=== PATIENT | female | born 1945 | race Caucasian/White ===

== ENCOUNTER 2017-10-20 11:44 | Observation (INO) ==
[2017-10-20] MEDS ORDERED: Aspirin 81 MG TAB.CHEW PO ONE (12:28)
--- NOTE | 2017-10-20 12:31 | Emergency Department Note ---
Disposition Clinical Impression: Weakness UTI (urinary tract infection) Qualifiers: Urinary tract infection type: acute cystitis Hematuria presence: without hematuria Qualified Code(s): N30.00 - Acute cystitis without hematuria Chest pain Qualifiers: Chest pain type: unspecified Qualified Code(s): R07.9 - Chest pain, unspecified Disposition: Admitted As Inpatient Condition: Good Weakness HPI - General Chief complaint: ED Weakness Stated complaint: Weakness/feels gonna pass out Time Seen by Provider: 10/20/17 11:55 Source: patient, family Mode of arrival: wheelchair Limitations: no limitations Nursing Notes Reviewed: Yes Vital Signs Reviewed: Yes (BP 194/84) - History of Present Illness HPI Narrative: 72-year-old female with past history previous NSTEMI, hypertension, arthritis, and osteoporosis, presents to emergency department with a 3 to four-day history of feeling lightheadedness, generalized weakness, and blurred vision. She states that at times when she is up walking around she feels like she is going to pass out. He also states that she is having some intermittent, dull centralized chest pain. The pain seems to resolve on its own after a few minutes. There is no associated diaphoresis, nausea, vomiting, or radiating pain. She reports that today she had some diarrhea. When she had her NSTEMI in April 2017 presenting symptom was syncope. Echo at that time showed EF 55% with mild diastolic dysfunction. She denies any fever, chills, focal weakness, syncope, dyspnea, abdominal pain, dysuria, or leg swelling. Pain Scale: 0 - Related Data Home Medications Medication Instructions Recorded Confirmed Alendronate Sodium [Fosamax] 70 mg PO TH 05/12/17 10/20/17 LORazepam [Ativan] 0.5 mg PO BID PRN 05/12/17 10/20/17 Previous Rx's Medication Instructions Recorded Aspirin 81 mg PO DAILY #30 tab.chew 12/25/15 Atorvastatin [Lipitor] 40 mg PO HS #30 tablet 12/25/15 Lisinopril [Zestril] 20 mg PO BID #60 tablet 12/25/15 levoFLOXacin [Levaquin] 500 mg PO DAILY #6 tablet 10/21/17 Allergies Allergy/AdvReac Type Severity Reaction Status Date / Time Sulfa (Sulfonamide Allergy Rash Verified 05/12/17 12:45 Antibiotics) meloxicam AdvReac Nausea Verified 05/12/17 12:45 tramadol AdvReac Hallucinati Verified 05/12/17 12:45 ng All systems ED: reviewed and negative except as stated. 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 history: Reports: no FACTORY PROCESS WORKERS history - Social History Smoking Status: Former smoker Smokeless Tobacco Status: No Alcohol use: Reports: rarely Drug use: Reports: none Physical Exam - General Limitations: no limitations General appearance: alert, in no apparent distress, lethargic - Head Head exam: atraumatic, normocephalic, normal inspection - Eye Eye exam: Present: normal appearance, PERRL, EOMI - ENT ENT exam: normal exam, normal oropharynx - Neck Neck exam: Present: normal inspection - Chest Chest inspection: Present: symmetric chest wall rise - Respiratory Respiratory exam: Present: normal lung sounds bilaterally. Absent: respiratory distress - Cardiovascular Cardiovascular exam: Present: regular rate, normal rhythm, +S1, +S2 - Abdominal Exam Abdominal exam: Present: soft, Non-Tender, normal bowel sounds, other (R groin TTP, no adenopathy/redness) - Extremities Exam Extremities exam: Present: normal inspection. Absent: tenderness, calf tenderness - Back Exam Back exam: Present: CVA tenderness (R). Absent: CVA tenderness (L) - Neurological Exam Neurological exam: Present: alert, oriented X3, CN II-XII intact, reflexes normal. Absent: motor sensory deficit - Psychiatric Psychiatric exam: Present: normal affect, normal mood - Skin Skin exam: Present: warm, dry, intact, normal color Course Vital Signs Temperature 98.3 F 10/20/17 11:48 Pulse Rate 86 10/20/17 11:48 Respiratory Rate 18 10/20/17 11:48 Blood Pressure 198/84 10/20/17 11:48 O2 Sat by Pulse Oximetry 99 10/20/17 11:48 Temperature 97.9 F 10/21/17 15:09 Pulse Rate 66 10/21/17 15:09 Respiratory Rate 16 10/21/17 15:09 Blood Pressure 134/64 10/21/17 15:09 O2 Sat by Pulse Oximetry 98 10/21/17 15:09 Oxygen Delivery Oxygen Delivery Room Air Weakness - MDM Narrative Medical decision making narrative: Patient received a dose of aspirin 324 upon arrival. ECG shows NSR and no signs of ischemia. Troponin negative. Her chest pain now has resolved. CBC and CMP are unremarkable. The patient has had been hypertensive here in the ED , and reports that she took one of her antihypertensive this morning. She states her blood pressure is always high. She was on both metoprolol and lisinopril, however she cannot remember which one she took this morning. She received 25mg of metoprolol here in the ED and her BP is not improved. Urinalysis is positive for nitrates, leukoesterase, white blood cells, and bacteria in the urine. Will give 1 dose of Rocephin now and the patient will be admitted for further antibiotic treatment for UTI. She lives alone and is quite symptomatic with lightheadedness and dizziness, and would be unsafe to discharge home at this time. - Lab Data Lab results reviewed: Yes I reviewed the patient's lab results. Result diagrams: 10/21/17 07:00 10/21/17 07:00 Lab Results 10/20/17 10/20/17 10/20/17 Range/Units 11:58 12:45 13:16 WBC 7.4 (4.3-11.1) K/mcL RBC 4.75 (3.82-4.97) M/mcL Hgb 13.0 (11.5-15.4) g/dL Hct 41.1 (35.3-44.9) % MCV 86.5 (83.0-100.0) fL MCH 27.4 L (28.0-33.3) pg MCHC 31.6 (31.6-35.5) g/dL RDW 13.9 (11.5-14.5) % Plt Count 242 (140-400) K/mcL MPV 10.5 (9.4-12.4) fL Immature Gran % 0.4 (0-4) % Seg Neutrophils % 70.2 % Lymphocytes % 16.3 % Monocytes % 11.2 % Eosinophils % 1.2 % Basophils % 0.7 % Neutrophils # 5.2 (1.6-8.9) K/mcL Lymphocytes # 1.2 (0.6-4.6) K/mcL Monocytes # 0.8 (0.0-1.3) K/mcL Eosinophils # 0.1 (0.0-0.6) K/mcL Basophils # 0.1 (0.0-0.2) K/mcL Sodium (136-145) mEq/L Potassium (3.5-5.1) mEq/L Chloride (98-107) mEq/L Carbon Dioxide (23-29) mEq/L BUN (8-23) mg/dL Creatinine (0.60-1.20) mg/dL Est GFR ( Amer) (> 60) Est GFR (Non-Af Amer) (> 60) BUN/Creatinine Ratio (6-26) Glucose (70-105) mg/dL POC Glucose 105 H (58-89) Calculated Osmolality (280-300) Calcium (8.6-10.3) mg/dL Total Bilirubin (0.3-1.0) mg/dL AST (13-39) Units/L ALT (7-52) Units/L Alkaline Phosphatase (34-104) Units/L Troponin I (< 0.04) ng/mL Serum Total Protein (6.4-8.9) g/dL Albumin (3.5-5.7) g/dL Globulin (2.4-3.5) g/dL Albumin/Globulin Ratio (1.1-2.2) TSH (0.340-5.600) mcIU/mL Urine Color Yellow (Yellow) Urine Clarity Clear (Clear) Urine pH 7.5 (5.0-8.0) pH Units Ur Specific [place] 1.009 L (1.010-1.025) Urine Protein Negative (Neg-Trace) mg/dL Urine Glucose (UA) Normal (Normal) mg/dL Urine Ketones Negative (Negative) mg/dL Urine Blood Negative (Negative) Urine Nitrite Positive A (Negative) Urine Bilirubin Negative (Negative) Urine Urobilinogen Normal (Normal) mg/dL Ur Leukocyte Esterase Moderate H (Negative) Urine Microscopic RBC 0-3 (0-3) per hpf Urine Microscopic WBC 3-5 H (0-3) per hpf Ur Squamous Epith Cells Moderate H (None-Few) per lpf Urine Bacteria Many H (None-Few) per hpf Hyaline Casts None Seen (None-Few) per lpf Ur Culture Indicated? YES A (NO) 10/20/17 Range/Units 13:16 WBC (4.3-11.1) K/mcL RBC (3.82-4.97) M/mcL Hgb (11.5-15.4) g/dL Hct (35.3-44.9) % MCV (83.0-100.0) fL MCH (28.0-33.3) pg MCHC (31.6-35.5) g/dL RDW (11.5-14.5) % Plt Count (140-400) K/mcL MPV (9.4-12.4) fL Immature Gran % (0-4) % Seg Neutrophils % % Lymphocytes % % Monocytes % % Eosinophils % % Basophils % % Neutrophils # (1.6-8.9) K/mcL Lymphocytes # (0.6-4.6) K/mcL Monocytes # (0.0-1.3) K/mcL Eosinophils # (0.0-0.6) K/mcL Basophils # (0.0-0.2) K/mcL Sodium 138 (136-145) mEq/L Potassium 3.8 (3.5-5.1) mEq/L Chloride 104 (98-107) mEq/L Carbon Dioxide 27 (23-29) mEq/L BUN 7 L (8-23) mg/dL Creatinine 0.75 (0.60-1.20) mg/dL Est GFR ( Amer) > 60 (> 60) Est GFR (Non-Af Amer) > 60 (> 60) BUN/Creatinine Ratio 9 (6-26) Glucose 105 (70-105) mg/dL POC Glucose (58-89) Calculated Osmolality 284 (280-300) Calcium 9.4 (8.6-10.3) mg/dL Total Bilirubin 0.4 (0.3-1.0) mg/dL AST 22 (13-39) Units/L ALT 12 (7-52) Units/L Alkaline Phosphatase 76 (34-104) Units/L Troponin I < 0.03 (< 0.04) ng/mL Serum Total Protein 6.6 (6.4-8.9) g/dL Albumin 3.9 (3.5-5.7) g/dL Globulin 2.7 (2.4-3.5) g/dL Albumin/Globulin Ratio 1.4 (1.1-2.2) TSH 1.560 (0.340-5.600) mcIU/mL Urine Color (Yellow) Urine Clarity (Clear) Urine pH (5.0-8.0) pH Units Ur Specific [place] (1.010-1.025) Urine Protein (Neg-Trace) mg/dL Urine Glucose (UA) (Normal) mg/dL Urine Ketones (Negative) mg/dL Urine Blood (Negative) Urine Nitrite (Negative) Urine Bilirubin (Negative) Urine Urobilinogen (Normal) mg/dL Ur Leukocyte Esterase (Negative) Urine Microscopic RBC (0-3) per hpf Urine Microscopic WBC (0-3) per hpf Ur Squamous Epith Cells (None-Few) per lpf Urine Bacteria (None-Few) per hpf Hyaline Casts (None-Few) per lpf Ur Culture Indicated? (NO) - Radiology Data Radiology results reviewed: Yes I reviewed the patient's radiology results. Chest x-ray shows no acute abnormality. - EKG Data EKG attestation: Yes I reviewed and interpreted this EKG. EKG results narrative: Sinus rhythm with a heart rate of 84, normal morphology, and no signs of ischemia. Attestation Statement - Attestation Attestation: I examined this patient and my medical decision-making was reviewed with the Resident Physician, Dr. Orelalna. I agree with the documented findings, disposition and treatment plan as described except to the extent set forth below. Pt is a pleasant 72 yo wf, with multiple medical problems, who presents with R flank/R groin pain [facility] has grad wosrsened. 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 None currently. Pt denies any urianrys xs, but was treated for UTI 10 d ago with outpt antibx. Pt treated for LLE cellulitis 5 d ago. Pt with diarrhea following antibx use, but has resolved. I agree with pt's PE findings as documented. Pt with no acute abn on CT, labs show elev WBC, and UTI. Will start antibx, and admit for CP, elev BP, pyelo which failed outpt antibx. D/W hsopitalist.
[2017-10-20 12:57] LABS: Bilirubin,Urine Negative (Negative); Blood,Urine Negative (Negative); Clarity,Urine Clear (Clear); Color,Urine Yellow (Yellow); Glucose,Urine (UA) Normal (Normal); Ketones,Urine Negative (Negative); Leukocyte Esterase,Urine Moderate (Negative); Nitrite,Urine Positive (Negative); PH,Urine 7.5 pH Units (5.0-8.0); Protein,Urine Negative (Neg-Trace); Specific Gravity,Urine 1.009 (1.010-1.025); Urobilinogen,Urine Normal (Normal)
[2017-10-20 13:00] LABS: Bacteria,Urine Many per hpf (None-Few); Hyaline Casts,Urine None Seen per lpf (None-Few); RBC,Urine 0-3 per hpf (0-3); Squamous Epithelial Cell,Urine Moderate per lpf (None-Few)
[2017-10-20 13:35] LABS: Basophils # 0.1 K/mcL (0.0-0.2); Basophils % 0.7 %; Eosinophils # 0.1 K/mcL (0.0-0.6); Eosinophils % 1.2 %; Hematocrit 41.1 % (35.3-44.9); Immature Granulocytes % 0.4 % (0-4); Lymphocytes # 1.2 K/mcL (0.6-4.6); Lymphocytes % 16.3 %; Mean Corpuscular HGB Conc 31.6 g/dL (31.6-35.5); Mean Corpuscular Hemoglobin 27.4 pg (28.0-33.3); Mean Corpuscular Volume 86.5 fL (83.0-100.0); Mean Platelet Volume 10.5 fL (9.4-12.4); Monocytes # 0.8 K/mcL (0.0-1.3); Monocytes % 11.2 %; Neutrophils # 5.2 K/mcL (1.6-8.9); Platelet Count 242 K/mcL (140-400); Red Blood Count 4.75 M/mcL (3.82-4.97); Red Cell Distribution Width 13.9 % (11.5-14.5); Segmented Neutrophils % 70.2 %
[2017-10-20 14:05] LABS: Alanine Aminotransferase 12 Units/L (7-52); Albumin 3.9 g/dL (3.5-5.7); Albumin/Globulin Ratio 1.4 (1.1-2.2); Alkaline Phosphatase 76 Units/L (34-104); Aspartate Amino Transferase 22 Units/L (13-39); BUN/Creatinine Ratio 9 (6-26); Bilirubin,Total 0.4 mg/dL (0.3-1.0); Blood Urea Nitrogen 7 mg/dL (8-23); Calcium 9.4 mg/dL (8.6-10.3); Carbon Dioxide 27 mEq/L (23-29); Chloride 104 mEq/L (98-107); Globulin 2.7 g/dL (2.4-3.5); Glucose 105 mg/dL (70-105); Osmolality,Calculated 284 (280-300); Potassium 3.8 mEq/L (3.5-5.1); Sodium 138 mEq/L (136-145); Total Protein 6.6 g/dL (6.4-8.9); eGFR For African Americans > 60 (> 60); eGFR For Non-African Americans > 60 (> 60)
[2017-10-20 14:07] LABS: Troponin I < 0.03 ng/mL (< 0.04)
[2017-10-20] MEDS ORDERED: cefTRIAXone 2,000 MG in Water for inj. (sterile) 20 ML 20 ML IVP ONE (14:51)
[2017-10-20] MEDS ORDERED: Acetaminophen 325 MG TABLET PO PRN (16:05)
[2017-10-20] MEDS ORDERED: Naloxone 0.4 MG/ML INJ IVP PRN (16:05)
[2017-10-20] MEDS ORDERED: *HR* HYDROcodone/Acet 5/325 mg TABLET PO PRN (16:05)
--- NOTE | 2017-10-20 16:10 | Internal Med History&Physical ---
Date of Encounter: 10/20/17 Time of Encounter: 16:08 Assessment and Plan (1) Acute cystitis without hematuria Current visit: Yes Status: Acute Continue with IV ceftriaxone 1 g daily. Follow-up urine culture and sensitivities. Adjust antibiotic therapy accordingly. Per (2) Hypertensive urgency Current visit: No Status: Resolved Continue lisinopril. Start IV metoprolol as needed for uncontrolled hypertension. Start low-sodium diet. (3) Anxiety Current visit: No Status: Chronic Continue Ativan. (4) DVT prophylaxis Current visit: No Status: Acute Encourage ambulation. (5) HLD (hyperlipidemia) Current visit: No Status: Chronic Continue statin. Qualifiers: Hyperlipidemia type: unspecified Qualified Code(s): E78.5 - Hyperlipidemia , unspecified (6) Dizziness Current visit: Yes Status: Acute PT OT evaluation. Internal Medicine - H&P: HPI Chief complaint: Dizziness Admitted From: Emergency Dept Plans for Post Hospital Care: Home History of present illness: Ms. Robin is a 72 year old female with past medical history significant for hypertension and coronary artery disease who presented to the hospital due to generalized weakness, feeling faint and dizzy. Past Med Surg Social Fam HX - Past Medical History Medical history: arthritis, hypertension, osteoporosis Psychiatric history: anxiety, depression - Past Surgical History Surgical History: no surgical history - Social History Smoking Status: Former smoker Smokeless Tobacco Status: No Alcohol use: rarely Drug use: none - Family History Father Hx Family Cardiac Disorders: Yes (patient thinks her dad had a heart attack) Hx Family Cancer: Yes (lung) Mother Living Status: Hx Family Cardiac Disorders: No Hx Family Respiratory Disorders: Yes Hx Family Cancer: Yes Hx Family GI Disorders: No Hx Family Endocrine Disorder: No Hx Family Neuromuscular Disorders: No Hx Family Neurologic Disorders: No Hx Family HEENT Disorders: No Hx Family Autoimmune Disorders: No Internal Medicine - H&P: Meds Aspirin 81 mg PO DAILY #30 tab.chew 12/25/15 [Rx] Atorvastatin [Lipitor] 40 mg PO HS #30 tablet 12/25/15 [Rx] Lisinopril [Zestril] 20 mg PO BID #60 tablet 12/25/15 [Rx] Alendronate Sodium [Fosamax] 70 mg PO TH 05/12/17 [History] LORazepam [Ativan] 0.5 mg PO BID PRN 05/12/17 [History] 3 Allergy/AdvReac Type Severity Reaction Status Date / Time Sulfa (Sulfonamide Allergy Rash Verified 05/12/17 12:45 Antibiotics) meloxicam AdvReac Nausea Verified 05/12/17 12:45 tramadol AdvReac Hallucinati Verified 05/12/17 12:45 ng All Systems PM: A 10-system review of systems was performed and is negative for pertinent findings except as documented above in the HPI. - Constitutional Vitals: Temp Pulse Resp BP Pulse Ox 98.3 F 82 17 186/103 97 10/20/17 11:48 10/20/17 15:31 10/20/17 15:31 10/20/17 15:31 10/20/17 15:31 General appearance: Present: A&O X 3 - Neck Neck exam general surgery: Present: supple, trachea midline. Absent: lymphadenopathy - Respiratory Respiratory exam: Present: CTAB. Absent: accessory muscle use, rales, rhonchi, wheezes - Cardiovascular Cardiovascular exam: Present: RRR, +S1, +S2. Absent: diastolic murmur, gallop, rubs, systolic murmur - GI/Abdominal GI/Abdominal exam: Present: normal bowel sounds, soft, no peritoneal signs. Absent: distended, tenderness - Extremities Exam Extremities exam: Present: warm, radial pulses palpable and symmetrical. Absent : calf tenderness, cyanotic, pedal edema - Skin Skin exam: Present: dry, intact Internal Med - H&P Results - Labs CBC & Chem 7: 10/20/17 13:16 10/20/17 13:16
[2017-10-20] MEDS: Lisinopril 20 MG TABLET PO SCH (21:09)
[2017-10-20] MEDS: *HR* LORazepam 0.5 MG TABLET PO PRN (21:10)
[2017-10-21 08:19] LABS: Hemoglobin 12.5 g/dL (11.5-15.4); Mean Corpuscular HGB Conc 31.3 g/dL (31.6-35.5); Mean Corpuscular Hemoglobin 27.2 pg (28.0-33.3); Mean Corpuscular Volume 87.1 fL (83.0-100.0); Mean Platelet Volume 10.6 fL (9.4-12.4); Platelet Count 253 K/mcL (140-400); Red Blood Count 4.59 M/mcL (3.82-4.97)
[2017-10-21 08:21] LABS: BUN/Creatinine Ratio 12 (6-26); Blood Urea Nitrogen 9 mg/dL (8-23); Calcium 9.1 mg/dL (8.6-10.3); Carbon Dioxide 24 mEq/L (23-29); Chloride 108 mEq/L (98-107); Glucose 101 mg/dL (70-105); Osmolality,Calculated 289 (280-300); Potassium 3.9 mEq/L (3.5-5.1); Sodium 140 mEq/L (136-145); eGFR For African Americans > 60 (> 60); eGFR For Non-African Americans > 60 (> 60)
[2017-10-21] MEDS: *HR* LORazepam 0.5 MG TABLET PO PRN (08:56)
[2017-10-21] MEDS: Lisinopril 20 MG TABLET PO SCH (08:56)
[2017-10-21] MEDS ORDERED: Aspirin 81 MG TAB.CHEW PO SCH (09:00)
[2017-10-21] MEDS ORDERED: cefTRIAXone 1,000 MG in Water for inj. (sterile) 20 ML 10 ML IVP SCH (09:00)
[2017-10-21 15:10] VITALS: BP 134/64
--- NOTE | 2017-10-21 15:45 | Discharge Summary ---
- NOTES TO OUTPATIENT PROVIDER Notes to Outpatient Provider: patient with UTI with culture positive for gram negative rods, on last admission was positive for Escherichia coli which was sensitive to all antibiotics. She was discharged on Cipro. Final sensitivity is pending tomorrow on this admission. Patient is adamant that she wants to get go home and has been agitated overnight regarding staying so we will discharge on appropriate medication and then await final sensitivity. May need to change antibiotic after review Date of Encounter: 10/21/17 Time of Encounter: 15:43 - Discharge Diagnosis (1) Acute cystitis without hematuria Priority: Primary Status: Acute Comments: Urine culture positive for gram negative rods on . Urine culture from July was positive for Escherichia coli and was sensitive to all modalities and she was treated with Cipro. She denies urinary symptoms this morning. Afebrile. Received Rocephin We will send home on a course of by mouth Levaquin We will watch for her urine culture and sensitivity to be completed tomorrow (2) Hypertensive emergency Priority: Primary Status: Acute Comments: Blood Pressure is stable follow-up with primary care physician continue previous home meds, patient has known essential hypertension (3) UTI (urinary tract infection) Priority: Primary Status: Acute Comments: Please see above Qualifiers: Urinary tract infection type: acute cystitis Hematuria presence: without hematuria Qualified Code(s): N30.00 - Acute cystitis without hematuria (4) Anxiety Priority: Primary Status: Chronic Comments: Patient became agitated and anxious regarding hospitalization Family inpatient anxious for discharge Hospital course: Ms. Robin is a 72 year old female presented to the emergency room due to generalized weakness, faintness and dizziness. She has a past medical history significant for hypertension, coronary artery disease, and recurrent UTI. Blood pressure is stable she is afebrile. She is anxious for discharge home and denies any complaints today. She will be discharged on oral Levaquin. She is a follow-up with her primary care physician this week. We will watch for her final sensitivity on her urine culture in case we need to change antibiotic. She had Escherichia coli in her urine in July that was treated with Cipro. Discharge discussed with: patient, family, nurse, case management - Time Spent with Patient Total time spent providing and/or coordinating discharge services: Less than 30 minutes - Discharge Medications Prescriptions: levoFLOXacin [Levaquin] 500 mg PO DAILY #6 tablet Home Medications: Aspirin 81 mg PO DAILY #30 tab.chew 12/25/15 [Rx] Atorvastatin [Lipitor] 40 mg PO HS #30 tablet 12/25/15 [Rx] Lisinopril [Zestril] 20 mg PO BID #60 tablet 12/25/15 [Rx] Alendronate Sodium [Fosamax] 70 mg PO TH 05/12/17 [History] LORazepam [Ativan] 0.5 mg PO BID PRN 05/12/17 [History] levoFLOXacin [Levaquin] 500 mg PO DAILY #6 tablet 10/21/17 [Rx] Allergies/Adverse Reactions: 3 Allergy/AdvReac Type Severity Reaction Status Date / Time Sulfa (Sulfonamide Allergy Rash Verified 05/12/17 12:45 Antibiotics) meloxicam AdvReac Nausea Verified 05/12/17 12:45 tramadol AdvReac Hallucinati Verified 05/12/17 12:45 ng Date of admission: 10/20/17 15:44 Primary care physician: Morena Morton CNP Consults: 10/20/17 16:06 Consult to Occupational Therapy [CONS] Routine Comment: Evaluate, develop and implement POC Reason for Consult: Dizziness Consult to Physical Therapy [CONS] Routine Comment: Evaluate, develop and implement POC Reason for Consult: Dizziness Discharging clinician: Enma Lazar Anticipated date of discharge: 10/21/17 - Constitutional Vitals: Temp Pulse Resp BP Pulse Ox 97.9 F 66 16 134/64 98 10/21/17 15:09 10/21/17 15:09 10/21/17 15:09 10/21/17 15:09 10/21/17 15:09 General appearance: Present: cooperative, A&O X 3, pleasant, no acute distress, answers questions appropriately - Head Head exam: Present: atraumatic, normocephalic - Eye Eye exam: Present: PERRL, conjuntiva pink, sclera anicteric Pupils: Present: PERRL - Neck Neck exam general surgery: Present: supple, trachea midline. Absent: lymphadenopathy - Respiratory Respiratory exam: Present: CTAB. Absent: accessory muscle use, rales, rhonchi, wheezes - Cardiovascular Cardiovascular exam: Present: RRR, +S1, +S2. Absent: diastolic murmur, gallop, rubs, systolic murmur - GI/Abdominal GI/Abdominal exam: Present: normal bowel sounds, soft, no peritoneal signs. Absent: distended, tenderness - Extremities Exam Extremities exam: Present: warm, radial pulses palpable and symmetrical. Absent : calf tenderness, cyanotic, pedal edema - Neurological Exam Neurological exam: Present: alert, CN II-XII intact, normal gait, no focal deficits, strengths equal and symetr throughout. Absent: pronater drift, facial droop, speech deficit - Skin Skin exam: Present: dry, intact, normal color, warm - Patient Status Disposition: Home, Self-Care Condition: Good Functional capacity at discharge: independent ambulation Overall status at discharge: patient is progressing back to baseline - Discharge Instructions Follow Up With: Morena Morton CNP [Primary Care Provider] - 10/28/17 1:00 pm - Diet and Activity Activity: increase activity as tolerated Diet: advance to your usual diet
--- NOTE | 2017-10-22 19:52 | Electrocardiograph Report ---
[address] [place], [place] [address] Test Date: 2017-10-20 Pat Name: Linda Robin Department: 102 Room: 3B43 Gender: F Director Sales: Marisa : 1945 Requested By: Tony Orellana Order Number: [id number] Reading MD: Bonny Molina Measurements Intervals [place] Rate: 84 P: 61 WI: 141 QRS: 21 QRSD: 72 T: 56 QT: 348 QTc: 389 Interpretive Statements SINUS RHYTHM NONSPECIFIC ST & T-WAVE ABNORMALITY Electronically Signed On 10-22-2017 19:51:12 EST by Bonny Molina
== END 2017-10-21 15:30 | disposition home or self-care (01) ==
LOC: EMEROO 11:44 → 3BNU 11:44 → SUATTDRO 15:44 → 3BNU 19:00
PROVIDERS: ADMIT Internal Medicine; ATTEND Nurse Practitioner Family

== ENCOUNTER 2017-12-01 18:09 | Inpatient (IN) ==
[2017-12-01] MEDS ORDERED: Isovue-370 500 ML INFUS..BTL IV ONE (18:28)
[2017-12-01] MEDS ORDERED: Esmolol 2.5 GM/250 ML MLS IVC SCH (18:30)
--- NOTE | 2017-12-01 18:39 | Emergency Department Note ---
Disposition Clinical Impression: Hypertension Qualifiers: Hypertension type: unspecified Qualified Code(s): I10 - Essential (primary) hypertension Disposition: Still a Patient Referrals: Morena Morton CNP [Primary Care Provider] - General Adult HPI - General Chief complaint: ED Altered Mental Status Stated complaint: ALTERED MENTAL STATUS/HYPERTENSION Time Seen by Provider: 12/01/17 18:14 Source: EMS Limitations: altered mental status - History of Present Illness Pain Scale: 3 - Related Data Home Medications Medication Instructions Recorded Confirmed Alendronate Sodium [Fosamax] 70 mg PO TH 05/12/17 10/20/17 LORazepam [Ativan] 0.5 mg PO BID PRN 05/12/17 10/20/17 Previous Rx's Medication Instructions Recorded Aspirin 81 mg PO DAILY #30 tab.chew 12/25/15 Atorvastatin [Lipitor] 40 mg PO HS #30 tablet 12/25/15 Lisinopril [Zestril] 20 mg PO BID #60 tablet 12/25/15 levoFLOXacin [Levaquin] 500 mg PO DAILY #6 tablet 10/21/17 Allergies Allergy/AdvReac Type Severity Reaction Status Date / Time Sulfa (Sulfonamide Allergy Rash Verified 05/12/17 12:45 Antibiotics) meloxicam AdvReac Nausea Verified 05/12/17 12:45 tramadol AdvReac Hallucinati Verified 05/12/17 12:45 ng Past Medical History - Past Medical History Medical history: Reports: arthritis, hypertension, osteoporosis Surgical history: Reports: no surgical history Psychiatric history: Reports: anxiety, depression FOCUS PULLER history: Reports: no FOCUS PULLER history - Social History Smoking Status: Former smoker Smokeless Tobacco Status: No Alcohol use: Reports: rarely Drug use: Reports: none Physical Exam - General Limitations: altered mental status Course Vital Signs Temperature 98.1 F 12/01/17 18:12 Pulse Rate 96 12/01/17 18:12 Respiratory Rate 14 12/01/17 18:12 Blood Pressure 215/102 12/01/17 18:12 O2 Sat by Pulse Oximetry 97 12/01/17 18:12 Temperature 98.1 F 12/01/17 18:12 Pulse Rate 96 12/01/17 18:12 Respiratory Rate 14 12/01/17 18:12 Blood Pressure 215/102 12/01/17 18:12 O2 Sat by Pulse Oximetry 97 12/01/17 18:12 Oxygen Delivery Oxygen Delivery Room Air Attestation Statement - Attestation Attestation: I examined this patient and my medical decision-making was reviewed with the Resident Physician. I agree with the documented findings, disposition and treatment plan as described except to the extent set forth below. 72 year old female with altered mental status and increased blood pressure of 215/120 and states that she typically has elevated blood pressures 180/90s and states that is gets up higher whenever she is anxious. She is also experiencing chest pain and states that thsi feels simliar to her OH inthe past althought she cannot remember when her last OH occured or if she has ever had stents. WE will start workup for cardiopuloary rule ot aortic dissection and unstable angine secondary to hypertensive emergency. We will sign patinet out to terebrad team (Shahana)
[2017-12-01] MEDS ORDERED: *HR* Metoprolol 5 MG/5 ML VIAL IVP ONE (18:50)
[2017-12-01 19:01] LABS: Basophils % 0.6 %; Eosinophils # 0.1 K/mcL (0.0-0.6); Eosinophils % 2.2 %; Hemoglobin 12.8 g/dL (11.5-15.4); Immature Granulocytes % 0.3 % (0-4); Lymphocytes # 1.5 K/mcL (0.6-4.6); Lymphocytes % 22.8 %; Mean Corpuscular HGB Conc 32.8 g/dL (31.6-35.5); Mean Corpuscular Hemoglobin 28.5 pg (28.0-33.3); Mean Corpuscular Volume 86.9 fL (83.0-100.0); Mean Platelet Volume 10.3 fL (9.4-12.4); Monocytes # 0.7 K/mcL (0.0-1.3); Monocytes % 10.8 %; Platelet Count 235 K/mcL (140-400); Red Blood Count 4.49 M/mcL (3.82-4.97); Red Cell Distribution Width 13.3 % (11.5-14.5); Segmented Neutrophils % 63.3 %
--- NOTE | 2017-12-01 19:04 | Emergency Department Note ---
Disposition Clinical Impression: Hypertensive urgency Hypertension Qualifiers: Hypertension type: unspecified Qualified Code(s): I10 - Essential (primary) hypertension Altered mental status Qualifiers: Altered mental status type: unspecified Qualified Code(s): R41.82 - Altered mental status, unspecified Chest pain Qualifiers: Chest pain type: unspecified Qualified Code(s): R07.9 - Chest pain, unspecified Disposition: Still a Patient Condition: Undetermined Referrals: Morena Morton [employer] [Primary Care Provider] - Forms: ED Satisfaction Letter Time of Disposition: 19:19 General Adult HPI - General Chief complaint: ED Altered Mental Status Stated complaint: ALTERED MENTAL STATUS/HYPERTENSION Time Seen by Provider: 12/01/17 18:14 Source: EMS Limitations: altered mental status Nursing Notes Reviewed: Yes Vital Signs Reviewed: Yes - History of Present Illness HPI Narrative: Patient is a 72-year-old female who presents to [facility] ED with a chief complaint of high blood pressure, chest pain, and possible altered mental status. Patient states she had an episode of chest pain earlier. Upon my examination, she is moaning. When asked if she is still having chest pain she says no. States she feels like she is about have a heart attack. Denies any nausea, vomiting, fever or chills. States she does have some difficulty with breathing when the chest pain comes on. Denies any abdominal pain, problems with urination or bowel movements. Patient is unsure about her medical history. Patient is frequently in the emergency department for similar symptoms. 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 Denies: cough, fever/chills, malaise, nausea/vomiting, weakness Treatments Prior to Arrival: none - Related Data Home Medications Medication Instructions Recorded Confirmed Alendronate Sodium [Fosamax] 70 mg PO TH 05/12/17 10/20/17 LORazepam [Ativan] 0.5 mg PO BID PRN 05/12/17 10/20/17 Previous Rx's Medication Instructions Recorded Aspirin 81 mg PO DAILY #30 tab.chew 12/25/15 Atorvastatin [Lipitor] 40 mg PO HS #30 tablet 12/25/15 Lisinopril [Zestril] 20 mg PO BID #60 tablet 12/25/15 levoFLOXacin [Levaquin] 500 mg PO DAILY #6 tablet 10/21/17 Allergies Allergy/AdvReac Type Severity Reaction Status Date / Time Sulfa (Sulfonamide Allergy Rash Verified 05/12/17 12:45 Antibiotics) meloxicam AdvReac Nausea Verified 05/12/17 12:45 tramadol AdvReac Hallucinati Verified 05/12/17 12:45 ng All systems ED: reviewed and negative except as stated. Past Medical History - Past Medical History Attestation: Yes The following information was validated with the patient. 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 EDUCATOR history - Social History Smoking Status: Former smoker Smokeless Tobacco Status: No Alcohol use: Reports: rarely Drug use: Reports: none Physical Exam - General Limitations: altered mental status General appearance: alert, in no apparent distress - Head Head exam: atraumatic, normocephalic, normal inspection - Eye Eye exam: Present: normal appearance, PERRL, EOMI - ENT ENT exam: normal exam, normal oropharynx, mucous membranes moist - Neck Neck exam: Present: normal inspection, full ROM, trachea midline - Chest Chest inspection: Present: normal inspection, symmetric chest wall rise - Respiratory Respiratory exam: Present: normal lung sounds bilaterally - Cardiovascular Cardiovascular exam: Present: regular rate, normal rhythm, normal heart sounds - Abdominal Exam Abdominal exam: Present: soft, Non-Tender. Absent: tenderness, distention, guarding, rebound, rigidity - Extremities Exam Extremities exam: Present: normal inspection, full ROM. Absent: tenderness, pedal edema - Back Exam Back exam: Present: normal inspection, full ROM. Absent: tenderness - Neurological Exam Neurological exam: Present: alert, oriented X3, CN II-XII intact, normal gait. Absent: motor sensory deficit - Expanded Neurological Exam Patient oriented to: Present: person, place. Absent: time Speech: Present: fluid speech Cerebellar function: normal gait Coma Scale Eye Opening: Spontaneous Coma Scale Motor Response: Obeys Commands Coma Scale Verbal Response: Confused Coma Scale Total: 14 - Psychiatric Psychiatric exam: Present: normal affect, normal mood - Skin Skin exam: Present: warm, dry, intact, normal color Course Course Narrative: Patient seen and examined. Chest pain with shortness of breath and hypertension. Her systolic blood pressure is in the 200s. We will give her dose of 5 mg metoprolol to see if this helps. We will get an altered mental status workup on her. We will also do a CT of the head. Since she had the sudden episode of chest pain and she had an impending sense of doom, we will evaluate for possible aortic dissection. CTA of the chest abdomen and pelvis ordered. At this time, patient will be signed out to night team Dr. Olivia and Dr. Harkins. Vital Signs Temperature 98.1 F 12/01/17 18:12 Pulse Rate 96 12/01/17 18:12 Respiratory Rate 14 12/01/17 18:12 Blood Pressure 215/102 12/01/17 18:12 O2 Sat by Pulse Oximetry 97 12/01/17 18:12 Temperature 98.1 F 12/01/17 18:12 Pulse Rate 96 12/01/17 18:12 Respiratory Rate 14 12/01/17 18:12 Blood Pressure 215/102 12/01/17 18:12 O2 Sat by Pulse Oximetry 97 12/01/17 18:12 Oxygen Delivery Oxygen Delivery Room Air Medical Decision Making - Medical Records Medical records reviewed: Yes I reviewed the patient's medical records. - Lab Data Lab results reviewed: Yes I reviewed the patient's lab results. - EKG Data EKG #1 EKG attestation: Yes I reviewed and interpreted this EKG. EKG results narrative: EKG done at 1814 shows sinus tachycardia with a rate of [address] elevation. Mild ST depression in V5 and V6. Occasional PVCs. Normal axis.
[2017-12-01 19:15] LABS: Bilirubin,Urine Negative (Negative); Blood,Urine Negative (Negative); Clarity,Urine Clear (Clear); Color,Urine Yellow (Yellow); Glucose,Urine (UA) Normal (Normal); Ketones,Urine Negative (Negative); Leukocyte Esterase,Urine Moderate (Negative); Nitrite,Urine Negative (Negative); Protein,Urine Negative (Neg-Trace); Specific Gravity,Urine 1.013 (1.010-1.025); Urobilinogen,Urine Normal (Normal)
[2017-12-01 19:18] LABS: Bacteria,Urine Moderate per hpf (None-Few); Hyaline Casts,Urine None Seen per lpf (None-Few); Squamous Epithelial Cell,Urine Few per lpf (None-Few); WBC,Urine 30-50 per hpf (0-3)
[2017-12-01 19:26] LABS: Troponin I < 0.03 ng/mL (< 0.04)
[2017-12-01 19:27] LABS: Alanine Aminotransferase 13 Units/L (7-52); Albumin/Globulin Ratio 1.4 (1.1-2.2); Alkaline Phosphatase 63 Units/L (34-104); Aspartate Amino Transferase 19 Units/L (13-39); BUN/Creatinine Ratio 21 (6-26); Bilirubin,Direct 0.1 mg/dL (0.0-0.2); Bilirubin,Indirect 0.2 mg/dL (0.0-1.2); Bilirubin,Total 0.3 mg/dL (0.3-1.0); Blood Urea Nitrogen 13 mg/dL (8-23); Calcium 9.2 mg/dL (8.6-10.3); Carbon Dioxide 27 mEq/L (23-29); Chloride 109 mEq/L (98-107); Ethanol < 10 mg/dL (Less than 10); Globulin 2.9 g/dL (2.4-3.5); Glucose 99 mg/dL (70-105); Osmolality,Calculated 296 (280-300); Potassium 3.9 mEq/L (3.5-5.1); Sodium 143 mEq/L (136-145); Total Protein 6.9 g/dL (6.4-8.9); eGFR For African Americans > 60 (> 60); eGFR For Non-African Americans > 60 (> 60)
[2017-12-01 19:28] LABS: RBC,Urine 0-3 per hpf (0-3)
[2017-12-01 19:35] LABS: Amphetamine Screen,Urine Negative ng/mL (Cutoff=1000); Barbiturate Screen,Urine Negative ng/mL (Cutoff=200); Benzodiazepines Screen,Urine Negative ng/mL (Cutoff=200); Cannabinoid Screen,Urine Negative ng/mL (Cutoff = 50); Cocaine Screen,Urine Negative ng/mL (Cutoff= 300); Opiate Screen,Urine Negative ng/mL (Cutoff=300); Phencyclidine Screen,Urine Negative ng/mL (Cutoff=25)
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
[2017-12-02] MEDS ORDERED: Naloxone 0.4 MG/ML INJ IVP PRN (01:25)
[2017-12-02] MEDS ORDERED: Acetaminophen 325 MG TABLET PO PRN (01:25)
[2017-12-02] MEDS: amLODIPine 5 MG TABLET PO SCH ×2 (01:31→08:21)
[2017-12-02 03:25] LABS: BUN/Creatinine Ratio 19 (6-26); Blood Urea Nitrogen 11 mg/dL (8-23); Calcium 9.4 mg/dL (8.6-10.3); Carbon Dioxide 25 mEq/L (23-29); Chloride 105 mEq/L (98-107); Glucose 110 mg/dL (70-105); Osmolality,Calculated 288 (280-300); Potassium 3.8 mEq/L (3.5-5.1); Sodium 139 mEq/L (136-145); eGFR For African Americans > 60 (> 60); eGFR For Non-African Americans > 60 (> 60)
[2017-12-02 03:26] LABS: Basophils # 0.1 K/mcL (0.0-0.2); Basophils % 0.5 %; Eosinophils # 0.1 K/mcL (0.0-0.6); Eosinophils % 0.9 %; Hematocrit 43.7 % (35.3-44.9); Hemoglobin 14.4 g/dL (11.5-15.4); Immature Granulocytes % 0.4 % (0-4); Immature Platelets 3.6 % (1.1-6.1); Lymphocytes # 1.5 K/mcL (0.6-4.6); Lymphocytes % 14.2 %; Mean Corpuscular Hemoglobin 28.4 pg (28.0-33.3); Mean Corpuscular Volume 86.2 fL (83.0-100.0); Mean Platelet Volume 11.1 fL (9.4-12.4); Monocytes # 0.8 K/mcL (0.0-1.3); Monocytes % 7.3 %; Neutrophils # 8.2 K/mcL (1.6-8.9); Platelet Count 257 K/mcL (140-400); Red Blood Count 5.07 M/mcL (3.82-4.97); Red Cell Distribution Width 13.4 % (11.5-14.5); Segmented Neutrophils % 76.7 %
[2017-12-02] MEDS: *HR* LORazepam 0.5 MG TABLET PO PRN ×2 (04:06→23:30)
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
[2017-12-02] MEDS: levoFLOXacin 500 MG TABLET PO SCH (08:20)
[2017-12-02] MEDS: Aspirin 81 MG TAB.CHEW PO SCH (08:20)
[2017-12-02] MEDS: Lisinopril 20 MG TABLET PO SCH ×2 (08:20→20:06)
--- NOTE | 2017-12-02 09:21 | Event Note ---
Date of Encounter: 12/02/17 Time of Encounter: 09:20 Patient continues to have intermittent chest pain. Mainly related to anxiety. Troponins are negative. Never had a cardiac stress test in the past. We will get 2-D echo cardiogram and schedule patient for cardiac stress test. Blood pressure is better controlled. We will continue to follow.
[2017-12-03] MEDS ORDERED: Regadenoson 0.4 MG/5 ML SYRINGE IVP ONE (05:41)
[2017-12-03] MEDS: Aspirin 81 MG TAB.CHEW PO SCH (09:23)
[2017-12-03] MEDS: levoFLOXacin 500 MG TABLET PO SCH (09:23)
[2017-12-03] MEDS: Lisinopril 20 MG TABLET PO SCH ×2 (09:23→20:45)
[2017-12-03] MEDS: amLODIPine 5 MG TABLET PO SCH (09:23)
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
[2017-12-03] MEDS: *HR* LORazepam 0.5 MG TABLET PO PRN ×2 (11:38→20:45)
[2017-12-03] MEDS ORDERED: Ziprasidone injection 20 MG/ML VIAL IM ONE (15:15)
[2017-12-03] MEDS ORDERED: risperiDONE 0.25 MG TABLET PO SCH (21:00)
[2017-12-04] MEDS ORDERED: Haloperidol Lactate 5 MG/ML VIAL IM ONE (03:28)
[2017-12-04] MEDS ORDERED: Regadenoson 0.4 MG/5 ML SYRINGE IVP ONE (06:13)
[2017-12-04 08:36] VITALS: BP 158/76
[2017-12-04] MEDS: levoFLOXacin 500 MG TABLET PO SCH (10:08)
[2017-12-04] MEDS: amLODIPine 5 MG TABLET PO SCH (10:08)
[2017-12-04] MEDS: Lisinopril 20 MG TABLET PO SCH (10:08)
[2017-12-04] MEDS: Aspirin 81 MG TAB.CHEW PO SCH (10:08)
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
[2017-12-05] MEDS ORDERED: NON-FORMULARY MEDICATION 1 EACH EACH (Alendronate Sodium [Fosamax] 70 MG) PO SCH (03:53)
--- NOTE | 2017-12-06 12:18 | Electrocardiograph Report ---
[place] [id number] Test Date: 2017-12-01 Pat Name: Linda Robin Department: 103 Room: 3B Gender: F Monogram Maker: AMARILYS : 1945 Requested By: Nereyda Mobley Order Number: [id number] Reading MD: Kahlil Jensen Measurements Intervals [place] Rate: 100 P: 62 MD: 152 QRS: 17 QRSD: 71 T: 59 QT: 342 QTc: 399 Interpretive Statements SINUS TACHYCARDIA WITH OCCASIONAL VENTRICULAR PREMATURE COMPLEXES NONSPECIFIC ST & T-WAVE ABNORMALITY Electronically Signed On 12-06-2017 12:16:30 EDT by Kahlil Jensen
== END 2017-12-04 15:17 | disposition home health service (06) | DRG 313 ==
LOC: 3BNU 18:09 → EMEROO 18:09 → SUATTDRO 12-02 00:31 → 3BNU 12-02 00:50
PROVIDERS: ADMIT Internal Medicine; ATTEND Internal Medicine

== ENCOUNTER 2018-05-06 12:03 | Inpatient (IN) ==
[2018-05-06 12:59] LABS: Bilirubin,Urine Negative (Negative); Blood,Urine Negative (Negative); Clarity,Urine Clear (Clear); Color,Urine Yellow (Yellow); Glucose,Urine (UA) Normal (Normal); Ketones,Urine 15 mg/dL (Negative); Leukocyte Esterase,Urine Small (Negative); Nitrite,Urine Negative (Negative); Protein,Urine 30 mg/dL (Neg-Trace); Specific Gravity,Urine 1.021 (1.010-1.025); Urobilinogen,Urine Normal (Normal)
[2018-05-06 13:05] LABS: Bacteria,Urine Few per hpf (None-Few); Hyaline Casts,Urine None Seen per lpf (None-Few); Squamous Epithelial Cell,Urine Moderate per lpf (None-Few)
--- NOTE | 2018-05-06 13:07 | Electrocardiograph Report ---
[facility] Test Date: 2018-05-06 Pat Name: Linda Robin Department: [id number] Room: Gender: F Bottom Stainer: : 1945 Requested By: Asher Stone Order Number: [id number] Reading MD: Cuate Doe Measurements Intervals [place] Rate: 74 P: 79 [place]: 150 QRS: 35 QRSD: 97 T: 54 QT: 437 QTc: 485 Interpretive Statements Sinus rhythm Probable left atrial enlargement Abnormal R-wave progression, early transition Electronically Signed On 05-06-2018 13:05:51 EDT by Cuate Doe
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
[2018-05-06 14:37] LABS: Basophils # 0.1 K/mcL (0.0-0.2); Basophils % 0.9 %; Eosinophils % 0.1 %; Hematocrit 44.9 % (35.3-44.9); Hemoglobin 14.7 g/dL (11.5-15.4); Immature Granulocytes % 0.2 % (0-4); Lymphocytes # 1.4 K/mcL (0.6-4.6); Lymphocytes % 16.5 %; Mean Corpuscular HGB Conc 32.7 g/dL (31.6-35.5); Mean Corpuscular Hemoglobin 28.2 pg (28.0-33.3); Mean Corpuscular Volume 86.2 fL (83.0-100.0); Mean Platelet Volume 10.5 fL (9.4-12.4); Monocytes # 0.7 K/mcL (0.0-1.3); Monocytes % 8.5 %; Platelet Count 226 K/mcL (140-400); Red Blood Count 5.21 M/mcL (3.82-4.97); Red Cell Distribution Width 14.3 % (11.5-14.5); Segmented Neutrophils % 73.8 %
[2018-05-06 14:43] LABS: Amphetamine Screen,Urine Negative ng/mL (Cutoff=1000); Barbiturate Screen,Urine Negative ng/mL (Cutoff=200); Benzodiazepines Screen,Urine Negative ng/mL (Cutoff=200); Cannabinoid Screen,Urine Negative ng/mL (Cutoff = 50); Cocaine Screen,Urine Negative ng/mL (Cutoff= 300); Opiate Screen,Urine Negative ng/mL (Cutoff=300); Phencyclidine Screen,Urine Negative ng/mL (Cutoff=25)
[2018-05-06 14:47] LABS: Prothrombin Time 11.1 Seconds (9.4-12.1)
[2018-05-06 14:50] LABS: Activated Partial Thrombo Time 27.9 Seconds (26.0-36.0)
[2018-05-06 15:02] LABS: Acetaminophen < 10 mcg/mL (10-20); BUN/Creatinine Ratio 16 (6-26); Blood Urea Nitrogen 11 mg/dL (8-23); Calcium 9.5 mg/dL (8.6-10.3); Carbon Dioxide 29 mEq/L (23-29); Chloride 105 mEq/L (98-107); Ethanol < 10 mg/dL (Less than 10); Glucose 100 mg/dL (70-105); Osmolality,Calculated 293 (280-300); Potassium 3.2 mEq/L (3.5-5.1); Salicylate < 2.5 mg/dL (15.0-30.0); Sodium 142 mEq/L (136-145); Troponin I < 0.03 ng/mL (< 0.04); eGFR For Non-African Americans > 60 (> 60)
[2018-05-06] MEDS ORDERED: Potassium Chloride Elixir 20 MEQ/15 ML UDC PO ONE (15:19)
[2018-05-06] MEDS ORDERED: *HR* LORazepam 0.5 MG TABLET PO ONE (16:15)
[2018-05-06] MEDS ORDERED: Naloxone 0.4 MG/ML INJ IVP PRN (17:27)
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
[2018-05-06] MEDS: risperiDONE 0.25 MG TABLET PO SCH (21:11)
[2018-05-06] MEDS: Lisinopril 20 MG TABLET PO SCH (21:12)
[2018-05-06] MEDS: *HR* LORazepam 0.5 MG TABLET PO PRN (21:12)
[2018-05-07 02:20] LABS: Basophils # 0.1 K/mcL (0.0-0.2); Basophils % 0.9 %; Eosinophils # 0.2 K/mcL (0.0-0.6); Eosinophils % 2.3 %; Hematocrit 35.2 % (35.3-44.9); Immature Granulocytes % 0.1 % (0-4); Lymphocytes % 26.1 %; Mean Corpuscular HGB Conc 32.7 g/dL (31.6-35.5); Mean Corpuscular Hemoglobin 27.6 pg (28.0-33.3); Mean Corpuscular Volume 84.4 fL (83.0-100.0); Mean Platelet Volume 10.8 fL (9.4-12.4); Monocytes % 12.3 %; Neutrophils # 4.5 K/mcL (1.6-8.9); Platelet Count 198 K/mcL (140-400); Red Blood Count 4.17 M/mcL (3.82-4.97); Red Cell Distribution Width 14.6 % (11.5-14.5); Segmented Neutrophils % 58.3 %
[2018-05-07 02:35] LABS: BUN/Creatinine Ratio 23 (6-26); Blood Urea Nitrogen 16 mg/dL (8-23); Calcium 9.3 mg/dL (8.6-10.3); Carbon Dioxide 22 mEq/L (23-29); Chloride 110 mEq/L (98-107); Glucose 122 mg/dL (70-105); Osmolality,Calculated 290 (280-300); Sodium 139 mEq/L (136-145); eGFR For Non-African Americans > 60 (> 60)
[2018-05-07 02:36] LABS: Hemoglobin 11.5 g/dL (11.5-15.4)
[2018-05-07] MEDS: Lisinopril 20 MG TABLET PO SCH ×2 (07:52→21:07)
[2018-05-07] MEDS: amLODIPine 5 MG TABLET PO SCH (07:52)
[2018-05-07] MEDS: Loratadine 10 MG TABLET PO SCH (07:52)
[2018-05-07] MEDS: Aspirin 81 MG TAB.CHEW PO SCH (07:52)
--- NOTE | 2018-05-07 09:24 | Internal Med Progress Note ---
Hospitalist Progress Note - Encounter Date of Encounter: 05/07/18 Time of Encounter: 10:00 - Exam Vitals: Temp Pulse Resp BP Pulse Ox 97.8 F 60 16 135/73 97 05/07/18 08:38 05/07/18 08:38 05/07/18 08:38 05/07/18 08:38 05/07/18 08:38 Exam: Gen - Awake, alert, oriented x 3, no acute distress HEENT - NCAT, PERRLA, EOMI, hearing grossly intact, oropharynx benign CV - RRR, normal S1 and S2, no M/R/G, no BLE edema Resp - Normal WOB, CTAB, no W/R/R GI - Soft, NT/ND, no masses, normal bowel sounds, Skin - Warm, dry, no rashes/lesions/ulcers Psych - paranoid - Assessment and Plan (1) Paranoid delusion Current Visit: Yes Status: Inactive Assessment and Plan: Came in with paranoid delusions and [place] slipped in ER. Utox negative Continue bedside sitter. Psych consulted by ER and appreciate recs. Social work consulted for possible placement (2) Chest pain Current Visit: Yes Status: Acute Assessment and Plan: 3 sets of troponins negative and patient is currently chest pain free. Last echo in November showed no wall motion abnormality. Patient was supposed to obtain a stress test on that admission but was unable to tolerate due to intermittent agitation. Discussed with nuclear medicine about obtaining a stress test on this admission, on assessing her, due to the fact that she refuses to have her court recording monitor on, they determined she would be unable to comply with their instructions and will not be able to tolerate a nuclear stress test at this time (3) Hypertension Current Visit: Yes Status: Chronic Assessment and Plan: 50mg Lopressor given in ER. Continue home medications. (4) Low blood potassium Current Visit: Yes Status: Acute Assessment and Plan: Potassium replaced in ER. Repeat labs in a.m. (5) Dementia Current Visit: Yes Status: Chronic Assessment and Plan: Social work consult for possible facility placement at discharge. Continue home medications. (6) DVT prophylaxis Current Visit: Yes Status: Acute Assessment and Plan: heparin sc - Time Spent with Patient Total time spent is greater than 50% in coordination of care (as documented) at patient's floor/unit and/or counseling patient: Internal Medicine: Result - Labs CBC & Chem 7: 05/07/18 01:52 05/07/18 01:52 Labs: Short CBC 05/07/18 Range/Units 01:52 WBC 7.8 (4.3-11.1) K/mcL Hgb 11.5 D (11.5-15.4) g/dL Hct 35.2 L (35.3-44.9) % Plt Count 198 (140-400) K/mcL Neutrophils # 4.5 (1.6-8.9) K/mcL BMP 05/07/18 01:52 Sodium 139 Potassium 4.0 Chloride 110 H Carbon Dioxide 22 L BUN 16 Creatinine 0.71 Glucose 122 H Calcium 9.3 Cardiac Enzymes 05/06/18 05/07/18 Range/Units 20:25 01:52 Troponin I < 0.03 < 0.03 (< 0.04) ng/mL - ABG Interpretation ABG results: PT/INR, D-dimer PT 11.1 Seconds (9.4-12.1) 05/06/18 14:18 Consult Discharge Plan - Plan Referrals: NONE,PCP [Primary Care Provider] - (2) Chest pain Qualifiers: Chest pain type: unspecified Qualified Code(s): R07.9 - Chest pain, unspecified (3) Hypertension Qualifiers: Hypertension type: unspecified Qualified Code(s): I10 - Essential (primary) hypertension (5) Dementia Qualifiers: Dementia type: unspecified type Dementia behavioral disturbance: with behavioral disturbance Qualified Code(s): F03.91 - Unspecified dementia with behavioral disturbance
[2018-05-07] MEDS: Fluticasone Propionate Nasal 50 MCG/SPRAY BOTTLE NS SCH (09:29)
[2018-05-07] MEDS ORDERED: Regadenoson 0.4 MG/5 ML SYRINGE IVP ONE (11:14)
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
[2018-05-07] MEDS: *HR* Heparin 5,000 UNIT/ML VIAL SQ SCH (17:32)
[2018-05-07] MEDS: *HR* LORazepam 0.5 MG TABLET PO PRN (17:37)
[2018-05-07] MEDS ORDERED: *HR* LORazepam 2 MG/ML VIAL IVP ONE (20:53)
[2018-05-07] MEDS: risperiDONE 0.25 MG TABLET PO SCH (21:07)
[2018-05-08] MEDS: *HR* Heparin 5,000 UNIT/ML VIAL SQ SCH ×2 (05:59→16:47)
[2018-05-08] MEDS: Lisinopril 20 MG TABLET PO SCH ×2 (08:21→20:09)
[2018-05-08] MEDS: Loratadine 10 MG TABLET PO SCH (08:21)
[2018-05-08] MEDS: Aspirin 81 MG TAB.CHEW PO SCH (08:22)
[2018-05-08] MEDS: Fluticasone Propionate Nasal 50 MCG/SPRAY BOTTLE NS SCH (08:22)
[2018-05-08] MEDS: amLODIPine 5 MG TABLET PO SCH (08:22)
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
--- NOTE | 2018-05-08 12:24 | Physician Discharge Referral ---
ExtendedCare Referral Info Transfer To: senior care facility Provider in Charge after Transfer: Other Institutional Level of Care: Skilled (Need for evaluation by [facility] and continuation of IVBP Vancomycin) - Diagnosis (1) Dementia Status: Acute (2) Chest pain Priority: Secondary Status: Resolved (3) Hypertension Priority: Secondary Status: Chronic (4) Paranoid delusion Priority: Primary Status: Acute (5) Low blood potassium Priority: Secondary Status: Resolved (6) DVT prophylaxis Priority: Secondary Status: Acute Prognosis: Fair Aware of Diagnosis: Family Aware of Prognosis: Family - Transfer Medications Home Medications: Aspirin 81 mg PO DAILY #30 tab.chew 12/25/15 [Rx] Lisinopril [Zestril] 20 mg PO BID #60 tablet 12/25/15 [Rx] Donepezil [Aricept] 5 mg PO HS 12/02/17 [History] Metoprolol [Lopressor] 50 mg PO BID 12/02/17 [History] Rosuvastatin Calcium [Crestor] 40 mg PO QPM 12/02/17 [History] LORazepam [Ativan] 0.5 mg PO BID PRN 7 Days #14 tablet 12/04/17 [Rx] amLODIPine [Norvasc] 10 mg PO DAILY #60 tablet 12/04/17 [Rx] risperiDONE [Risperidone] 0.5 mg PO HS #30 tablet 12/04/17 [Rx] Citalopram [CeleXA] 20 mg PO DAILY 05/06/18 [History] Fluticasone Propionate Nasal [Flonase] 1 spr NS DAILY 05/06/18 [History] Loratadine [Allergy Relief] 10 mg PO DAILY 05/06/18 [History] Allergies/Adverse Reactions: 3 Allergy/AdvReac Type Severity Reaction Status Date / Time Sulfa (Sulfonamide Allergy Rash Verified 05/12/17 12:45 Antibiotics) meloxicam AdvReac Nausea Verified 05/12/17 12:45 tramadol AdvReac Hallucinati Verified 05/12/17 12:45 ng - Respiratory Orders Oxygen / L per min (@ 2LPM/NC) Smoking Cessation: Smoking cessation has been advised. For more information, call the [employer] Tobacco Quit Line at 6-554-XWIY-NOW. - Lab Orders Lab Orders: Other (include drug levels w/frequency) - Advance Directives Code Status: DNR-Comfort Care - Mobility Orders Chair, Bedrest - Rehabiliation Orders Rehab Potential: Fair Rehab Orders: Evaluation for Physical Therapy - Treatments Skin tear care topically daily PRN per policy, May check for fecal impaction rectally daily PRN, Fleet enema rectally every other day PRN cleansing purposes - Diet Orders No Added Salt (YUNIEL) House Supplement per Dietary: evaluation and recommendations per dietary as needed CERTIFICATION: I certify that the transfer of the above named patient to an Extended Care Facility is necessary for the continuing treatment of the diagnosis listed. The above information is true and accurate reflection of patient's current condition. Confidential - Redisclosure prohibited without a patient's written consent.
[2018-05-08] MEDS: Ampicillin 2 GM in 0.9 % Sodium Chloride Mini Bag 100 ML IVPB SCH ×2 (14:56→20:10)
[2018-05-09] MEDS: *HR* LORazepam 0.5 MG TABLET PO PRN (00:38)
[2018-05-09] MEDS: Ampicillin 2 GM in 0.9 % Sodium Chloride Mini Bag 100 ML IVPB SCH ×3 (01:30→14:13)
[2018-05-09 04:42] LABS: Basophils # 0.1 K/mcL (0.0-0.2); Basophils % 0.7 %; Eosinophils # 0.2 K/mcL (0.0-0.6); Eosinophils % 2.4 %; Hematocrit 34.7 % (35.3-44.9); Hemoglobin 11.4 g/dL (11.5-15.4); Immature Granulocytes % 0.5 % (0-4); Lymphocytes # 2.2 K/mcL (0.6-4.6); Lymphocytes % 25.2 %; Mean Corpuscular HGB Conc 32.9 g/dL (31.6-35.5); Mean Corpuscular Hemoglobin 27.9 pg (28.0-33.3); Mean Platelet Volume 10.9 fL (9.4-12.4); Monocytes % 11.1 %; Neutrophils # 5.2 K/mcL (1.6-8.9); Platelet Count 172 K/mcL (140-400); Red Blood Count 4.08 M/mcL (3.82-4.97); Red Cell Distribution Width 14.4 % (11.5-14.5); Segmented Neutrophils % 60.1 %
[2018-05-09 04:46] LABS: Prothrombin Time 10.8 Seconds (9.4-12.1)
[2018-05-09 04:49] LABS: Activated Partial Thrombo Time 29.5 Seconds (26.0-36.0)
[2018-05-09 05:00] LABS: eGFR For Non-African Americans > 60 (> 60)
[2018-05-09] MEDS: *HR* Heparin 5,000 UNIT/ML VIAL SQ SCH ×2 (05:23→17:44)
[2018-05-09] MEDS: Aspirin 81 MG TAB.CHEW PO SCH (08:54)
[2018-05-09] MEDS: risperiDONE 1 MG TABLET PO SCH (08:54)
[2018-05-09] MEDS: Lisinopril 20 MG TABLET PO SCH ×2 (08:54→21:05)
[2018-05-09] MEDS: Loratadine 10 MG TABLET PO SCH (08:54)
[2018-05-09] MEDS: amLODIPine 5 MG TABLET PO SCH (08:54)
[2018-05-09] MEDS: Fluticasone Propionate Nasal 50 MCG/SPRAY BOTTLE NS SCH (08:56)
--- NOTE | 2018-05-09 12:45 | Internal Med Progress Note ---
Hospitalist Progress Note - Encounter Date of Encounter: 05/09/18 Time of Encounter: 12:33 - Subjective Interval History: Continues to be somewhat disoriented and confused. Daughter is at bedside. Discussed plan of care including discharged to locked facility on a dementia unit. Family agreeable to plan of care. - Exam Vitals: Temp Pulse Resp BP Pulse Ox 97.8 F 59 17 138/68 96 05/09/18 11:52 05/09/18 11:52 05/09/18 11:52 05/09/18 11:52 05/09/18 11:52 Exam: PHYSICAL EXAMINATION: GENERAL: The patient is an elderly female in no apparent distress, she is alert to self and somewhat alert to place however is disoriented to situation and appears to have intermittent confusion HEENT: Head is normocephalic and atraumatic. Extraocular muscles are intact. Pupils are equal, round, and reactive to light and accommodation. NECK: Supple. No carotid bruits. No lymphadenopathy or thyromegaly. LUNGS: Clear to auscultation. HEART: Irregular rhythm without tachycardia, S1, S2 without murmur rubs or gallops. ABDOMEN: Soft, nontender, and nondistended. Positive bowel sounds. No hepatosplenomegaly was noted. EXTREMITIES: Without any cyanosis, clubbing, rash, lesions or edema. NEUROLOGIC: Cranial nerves II through XII are grossly intact. PSYCHIATRIC: Flat affect, but denies suicidal or homicidal ideations. He continues to display confusion and some paranoid ideation SKIN: No ulceration or induration present, warm dry and intact. - Assessment and Plan (1) Dementia Current Visit: Yes Status: Acute Assessment and Plan: History of chronic dementia Patient appears to be delusional and paranoid on arrival stating that "my family is trying to kill me" It was reported the patient was found wandering after running through the vogel with fear of her family trying to harm her SH change from patient's baseline status Althea Colon, psychiatrist seen in consultation and recommens an increase of Aircept dose to 10 mg daily Additional recommendations are to increase Risperdal to 1 mg twice daily; and discharge patient to [facility] unit Awaiting discharge at this time Patient continues to have episodes of confusion and paranoid ideation but per family is continuing to improve. Delusional and paranoid ideation likely result of urinary tract infection Proceed with discharge to [facility] unit for further monitoring and evaluation ; family agreeable to this plan. Daughters at bedside and are the patient's power of staff attorney (2) Hypertension Current Visit: Yes Status: Chronic Assessment and Plan: Hypertension per History Stable at this time Continue medications (3) Chest pain Current Visit: Yes Status: Resolved (4) Paranoid delusion Current Visit: Yes Status: Acute Assessment and Plan: Improving per family but some paranoid ideation persists As above (5) Low blood potassium Current Visit: Yes Status: Resolved (6) DVT prophylaxis Current Visit: Yes Status: Acute Assessment and Plan: Continue subcutaneous heparin - Time Spent with Patient Total time spent is greater than 50% in coordination of care (as documented) at patient's floor/unit and/or counseling patient: less than 15 minutes Plan of Care Discussed with: patient Internal Medicine: Result - Labs CBC & Chem 7: 05/09/18 04:18 05/09/18 04:18 Labs: Short CBC 05/09/18 Range/Units 04:18 WBC 8.6 (4.3-11.1) K/mcL Hgb 11.4 L (11.5-15.4) g/dL Hct 34.7 L (35.3-44.9) % Plt Count 172 (140-400) K/mcL Neutrophils # 5.2 (1.6-8.9) K/mcL BMP 05/09/18 04:18 Creatinine 0.62 - ABG Interpretation ABG results: PT/INR, D-dimer PT 10.8 Seconds (9.4-12.1) 05/09/18 04:18 Consult Discharge Plan - Plan Instructions: Chronic Hypertension (DC) Referrals: NONE,PCP [Primary Care Provider] - (1) Dementia Qualifiers: Dementia type: unspecified type Dementia behavioral disturbance: with behavioral disturbance Qualified Code(s): F03.91 - Unspecified dementia with behavioral disturbance (2) Hypertension Qualifiers: Hypertension type: essential hypertension Qualified Code(s): I10 - Essential (primary) hypertension (3) Chest pain Qualifiers: Chest pain type: unspecified Qualified Code(s): R07.9 - Chest pain, unspecified
[2018-05-09] MEDS: Nitrofurantoin (BID) 100 MG CAPSULE PO SCH (17:44)
[2018-05-10] MEDS: *HR* Heparin 5,000 UNIT/ML VIAL SQ SCH ×2 (05:10→17:57)
[2018-05-10] MEDS: amLODIPine 5 MG TABLET PO SCH (09:00)
[2018-05-10] MEDS: Nitrofurantoin (BID) 100 MG CAPSULE PO SCH ×2 (09:00→17:18)
[2018-05-10] MEDS: risperiDONE 1 MG TABLET PO SCH (09:00)
[2018-05-10] MEDS: Aspirin 81 MG TAB.CHEW PO SCH (09:00)
[2018-05-10] MEDS: Lisinopril 20 MG TABLET PO SCH ×2 (09:00→19:36)
[2018-05-10] MEDS: Fluticasone Propionate Nasal 50 MCG/SPRAY BOTTLE NS SCH (09:00)
[2018-05-10] MEDS: Loratadine 10 MG TABLET PO SCH (09:00)
--- NOTE | 2018-05-10 09:08 | Internal Med Progress Note ---
Hospitalist Progress Note - Encounter Date of Encounter: 05/10/18 Time of Encounter: 09:02 - Subjective Interval History: No acute changes overnight, confusion persists however patient is demented at baseline. No family bedside to discuss POC - Exam Vitals: Temp Pulse Resp BP Pulse Ox 98.5 F 64 19 157/66 97 05/10/18 07:51 05/10/18 07:51 05/10/18 07:51 05/10/18 07:54 05/10/18 07:51 Exam: PHYSICAL EXAMINATION: GENERAL: The patient is an elderly female in no apparent distress, she is alert to self and somewhat alert to place however is disoriented to situation and appears to have intermittent confusion HEENT: Head is normocephalic and atraumatic. Extraocular muscles are intact. Pupils are equal, round, and reactive to light and accommodation. NECK: Supple. No carotid bruits. No lymphadenopathy or thyromegaly. LUNGS: Clear to auscultation. HEART: Irregular rhythm without tachycardia, S1, S2 without murmur rubs or gallops. ABDOMEN: Soft, nontender, and nondistended. Positive bowel sounds. No hepatosplenomegaly was noted. EXTREMITIES: Without any cyanosis, clubbing, rash, lesions or edema. NEUROLOGIC: Cranial nerves II through XII are grossly intact. PSYCHIATRIC: She continues to display confusion and some paranoid ideation SKIN: No ulceration or induration present, warm dry and intact. - Assessment and Plan (1) Dementia Current Visit: Yes Status: Acute Assessment and Plan: History of chronic dementia Patient appears to be delusional and paranoid on arrival stating that "my family is trying to kill me" It was reported the patient was found wandering after running through the vogel with fear of her family trying to harm her SH change from patient's baseline status Althea Colon, psychiatrist seen in consultation and recommens an increase of Aircept dose to 10 mg daily Additional recommendations are to increase Risperdal to 1 mg twice daily; and discharge patient to [facility] Awaiting discharge at this time Patient continues to have episodes of confusion and paranoid ideation but per family is continuing to improve. Delusional and paranoid ideation likely result of urinary tract infection Proceed with discharge to [facility] unit for further monitoring and evaluation ; family agreeable to this plan. Daughters at bedside and are the patient's power of trial attorney 05/10--patient continues to display episodes of confusion and is only alert to self at this time. Continues to be a risk to self and is displaying poor safety awareness. Psych recommends d/c to [facility]. D/C pending. D/W social work program coordinator today regarding d/c (2) Hypertension Current Visit: Yes Status: Chronic Assessment and Plan: Hypertension per History Mildly elevated- 157/66 Monitor at this time Continue medications (3) Chest pain Current Visit: Yes Status: Resolved Assessment and Plan: resolved (4) Paranoid delusion Current Visit: Yes Status: Acute Assessment and Plan: Improving per family but some paranoid ideation persists; continues to display confusion; h/o dementia As above (5) Low blood potassium Current Visit: Yes Status: Resolved (6) DVT prophylaxis Current Visit: Yes Status: Acute Assessment and Plan: Continue SC heparin - Time Spent with Patient Total time spent is greater than 50% in coordination of care (as documented) at patient's floor/unit and/or counseling patient: less than 15 minutes Plan of Care Discussed with: patient Internal Medicine: Result - Labs CBC & Chem 7: 05/09/18 04:18 05/09/18 04:18 - ABG Interpretation ABG results: PT/INR, D-dimer PT 10.8 Seconds (9.4-12.1) 05/09/18 04:18 Consult Discharge Plan - Plan Instructions: Chronic Hypertension (DC) Referrals: NONE,PCP [Primary Care Provider] - (1) Dementia Qualifiers: Dementia type: unspecified type Dementia behavioral disturbance: with behavioral disturbance Qualified Code(s): F03.91 - Unspecified dementia with behavioral disturbance (2) Hypertension Qualifiers: Hypertension type: essential hypertension Qualified Code(s): I10 - Essential (primary) hypertension (3) Chest pain Qualifiers: Chest pain type: unspecified Qualified Code(s): R07.9 - Chest pain, unspecified
[2018-05-11] MEDS: *HR* Heparin 5,000 UNIT/ML VIAL SQ SCH (05:11)
[2018-05-11] MEDS: Lisinopril 20 MG TABLET PO SCH (07:48)
[2018-05-11] MEDS: risperiDONE 1 MG TABLET PO SCH (07:48)
[2018-05-11] MEDS: amLODIPine 5 MG TABLET PO SCH (07:48)
[2018-05-11] MEDS: Aspirin 81 MG TAB.CHEW PO SCH (07:48)
[2018-05-11] MEDS: Loratadine 10 MG TABLET PO SCH (07:48)
[2018-05-11] MEDS: Nitrofurantoin (BID) 100 MG CAPSULE PO SCH (07:48)
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
[2018-05-11 12:02] VITALS: BP 108/56
[2018-05-11] MEDS: Fluticasone Propionate Nasal 50 MCG/SPRAY BOTTLE NS SCH (12:46)
== END 2018-05-11 14:27 | DRG 690 ==
LOC: 3BNU 12:03 → EMEROOARM 12:03 → 3BNU 17:17
PROVIDERS: ADMIT Internal Medicine; ATTEND Internal Medicine